=== PATIENT | female | born 1990 | race African-American/Black ===

== ENCOUNTER 2023-12-03 12:46 | Outpatient (AMB) | payer BC, SELFPAY ==
[2023-12-03 13:19] VITALS: BP 118/66; PULSE 72; TEMP 36.8; O2SAT 100; BMI 22.7
--- NOTE | 2023-12-03 13:19 | MHC.PC.OV ---
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
--- NOTE | 2023-12-03 13:26 | MHC.OFFWIV ---
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 She reports no obvious food borne source, and no known sick contacts. She denies underlying immuno compromising commit conditions or pertinent past medical history. She is staying in a hotel locally as she is working for the [employer]. Apparently they requested that she get evaluated. She denies current nausea vomiting or diarrhea, shortness of breath or chest pain, weakness or dizziness, myalgias or malaise, fever or chills, respiratory symptoms, abdominal pain, pelvic pain, urinary symptoms or other significant associated symptoms. Review of Systems Const All systems reviewed & are unremarkable except as noted in HPI and below Physical Exam Vital Signs: Last Vital Signs Temp 98.2 F 12/03/23 13:19 Pulse 72 12/03/23 13:19 BP 118/66 12/03/23 13:19 Pulse Ox 100 12/03/23 13:19 Oxygen Delivery Method Room Air 12/03/23 13:19 BMI result Body Mass Index 22.7 Const General: cooperative, healthy appearing, comfortable, no acute distress, alert, awake, Physically active and well groomed; No anxious, diaphoretic, ill appearing, intoxicated appearing, poor hygiene or tired appearing Nutritional Appearance: average body habitus Orientation/consciousness: patient oriented x3 Limitations: no limitations Resp Effort & Inspection: normal respiratory effort Cardio Rate: regular rate GI Palpation (GI): Soft to palpation, not firm, nontender, no guarding, not rigid and No hepatosplenomegaly present Skin Other: Good color, warm and dry Neuro General: patient oriented x3 and gait normal Psych Appearance: grossly normal Mental Status: mental status grossly normal Speech and movement: Normal speech and movement present Affect: normal affect Attitude: cooperative Thought process: Normal thought process present Insight: Good insight present (Psych) Judgement: Good judgement present (Psych) Assessment & Plan Assessment & Plan (1) Gastroenteritis: Code(s): K52.9 - Noninfective gastroenteritis and colitis, unspecified Plan Patient with likely gastroenteritis, already resolving since early this morning. No obvious food borne source, no known sick contacts. She has not been nauseous or vomiting. Her appetite is already active. She had no fever or chills, and denies bloody or coffee-ground stools. Her vitals are stable, and she has no abdominal pain, and exam is otherwise unremarkable. She declined Zofran. She already has Imodium AD which she has not trialed yet. We discussed doing a liquid intake at 1st, and if she tolerates that then advancing to a bland diet, progressing as tolerated. I advised she stay out of work until tomorrow, but can return if symptoms are still resolved. She will follow up if symptoms persist or worsen, or go to the emergency department with worrisome symptoms. Coding Level of Care Code New Pt Level 4 (00991) Diagnoses Gastroenteritis K52.9
== END 2023-12-03 14:16 | disposition home or self-care (01) ==
PROVIDERS: Visit Provider Physician Assistant Medical
DX: K52.9 Noninfective gastroenteritis and colitis, unspecified (principal)
CPT/HCPCS: 99204